=== PATIENT | female | born 1965 | race Caucasian/White ===

== ENCOUNTER 2021-07-19 07:54 | Outpatient (CLI) | payer MEDICARE, MEDICAID, SELFPAY ==
--- NOTE | ~2021-07-19 | MR_ITS ---
EXAMINATION: MR lumbar spine wo/w con DATE: 07/19/2021 10:44 INDICATION: Radiculopathy and lumbago. TECHNIQUE: Magnetic resonance imaging (MRI) of the lumbar spine was performed without and with 15 mL Multihance intravenous contrast. Sequences included sagittal T2-weighted FSE, sagittal T2-weighted FS FSE, and sagittal and axial T1-weighted FSE. Postcontrast sequences included axial T2-weighted FSE, sagittal T1-weighted FSE, and axial and sagittal T1-weighted FS FSE. COMPARISON: None FINDINGS: L3 laminectomy and partial L2 laminectomies. Combined anterior and posterior spinal fusion at L2-L3 w ith magnetic field artifact associated with an interbody fusion device at the right anterior side of the disc space and with bilateral vertical becky and pedicle screw fixation posteriorly. Alignment is n ormal. Small Schmorl's node along the superior endplate of L2. Vertebral body heights are otherwise n ormal. Normal marrow signal. Moderate disc height loss at L3-L4 and mild disc height loss with disc desiccation at L4-L5. The conus medullaris terminates at L1. There is normal signal in the caudal spi nal cord. Paravertebral soft tissues are unremarkable. No abnormally enhancing lesions identified. Th e following disc levels are specifically discussed: T12-L1: The disc does not extend beyond the endplate margin. There is no facet joint osteoarthritis. There is no neural foraminal stenosis. There is no central canal stenosis. L1-L2: Disc is minimally bulging. There is mild bilateral facet joint osteoarthritis. There is no hao ral foraminal stenosis. There is no central canal stenosis. L2-L3: Disc space is fused with prominent posterior bridging osteophyte. Posterior decompression with partial L2 laminectomy and L3 laminectomy. Posterior spinal fusion. There is no neural foraminal freddy nosis. There is no central canal stenosis. L3-L4: Disc is bulging. There is hypertrophy of the ligamentum flavum. There is moderate to severe bi lateral facet joint osteoarthritis. There is mild right and moderate left neural foraminal stenosis. There is mild central canal stenosis along with mild narrowing of the left and right lateral recesses . L4-L5: Disc is mildly bulging. There is moderate left and mild to moderate right facet joint osteoart hritis. There is moderate bilateral neural foraminal stenosis. There is mild central canal stenosis. L5-S1: The disc does not extend beyond the endplate margin. There is moderate bilateral facet joint o steoarthritis. There is no neural foraminal stenosis. There is no central canal stenosis. IMPRESSION: 1. Moderate lumbar spondylosis with L3 laminectomy, partial L2 laminectomy and combined instrumented anterior and posterior spinal fusion at L2-L3. Reviewed, dictated and finalized at location B. COLLECTION SYSTEM OPERATOR
== END 2021-07-19 07:55 | disposition home or self-care (01) ==
LOC: CHSIMG 07:56
PROVIDERS: PCP Family Medicine; Visit Provider Nurse Practitioner Family
DX: M54.50 Low back pain, unspecified (principal); M54.10 Radiculopathy, site unspecified
CPT/HCPCS: 72158; A9577

== ENCOUNTER 2021-12-09 11:05 | Outpatient (CLI) | payer MEDICARE, MEDICAID, SELFPAY ==
--- NOTE | ~2021-12-09 | XR_ITS ---
EXAMINATION: XR chest 2V DATE: 12/09/2021 11:31 INDICATION: Diastolic heart failure. Dyspnea. TECHNIQUE: Frontal and lateral views of the chest were obtained. COMPARISON: None. FINDINGS: The chest demonstrates clear lungs without pneumonia, pleural effusion, or pneumothorax. Th e heart size is normal. IMPRESSION: 1. No acute cardiopulmonary disease. Reviewed, dictated and finalized at location A.
--- NOTE | 2021-12-09 11:27 | ECG_ITS ---
Measurements Intervals [place] Rate: 63 P: 25 DE: 164 QRS: 70 QRSD: 116 T: 52 QT: 419 QTc: 431 Interpretive Statements SINUS RHYTHM INCOMPLETE RIGHT BUNDLE BRANCH BLOCK BASELINE WANDER- AVR, AVL, AVF, V1 BORDERLINE ECG Electronically Signed On 12-09-2021 17:20:43 CDT by Fei Brenner D.O.
--- NOTE | 2021-12-09 14:00 | ECHO_ITS ---
Patient Info Name: Jackelin Silveira Age: 56 years : 1965 Gender: Female Ht: 65 in Wt: 281 lbs BSA: 2.49 m2 HR: 59 bpm BP: 128 / 70 mmHg Technical Quality: Good Exam Date: 12/09/2021 12:36 PM Exam Location: [facility] Patient Status: Outpatient Admit Date: 12/09/2021 Staff Ordering Physician: AntonellaDanie MD Leasing Consultant: Francis Son, YOLANDA, RT Attending Provider: AntonellaDanie MD Exam Type: CA echo doppler color flow Study Info Indications R06.00 - Dyspnea, unspecified Complete two-dimensional, color flow and Doppler transthoracic echocardiogram is performed. Strain analysis performed. Summary 1. Complete two-dimensional, color flow and Doppler transthoracic echocardiogram is performed. 2. Left ventricular chamber dimension is normal. 3. Left ventricular systolic function is normal, estimated at 60-65%. 4. The left ventricular diastolic function is grade I diastolic dysfunction. 5. E/e' 7 is not elevated. 6. Global longitudinal strain is normal at -19.4%. 7. Left atrial chamber dimension is mildly enlarged. 8. Right atrial chamber dimension is mildly enlarged. 9. There is mild aortic valve regurgitation. 10. There is moderate tricuspid valve regurgitation. 11. No pulmonary hypertension, estimated pulmonary arterial systolic pressure is 32 mmHg. Left Ventricle E/e' 7 is not elevated. Global longitudinal strain is normal at -19.4%. Left ventricular chamber dimension is normal. Left ventricular systolic function is normal, estimated at 60-65%. The left ventricular diastolic function is grade I diastolic dysfunction. Right Ventricle Right ventricular systolic function is normal and with normal TAPSE 2.7 cm. Right ventricular chamber dimension is normal. Left Atria Left atrial chamber dimension is mildly enlarged. Right Atria Right atrial chamber dimension is mildly enlarged. Aortic Valve The aortic valve is trileaflet. There is no aortic valve stenosis. There is mild aortic valve regurgitation. Pulmonic Valve There is no pulmonic regurgitation. Mitral Valve There is no mitral valve stenosis. There is no mitral valve regurgitation. Tricuspid Valve There is moderate tricuspid valve regurgitation. No pulmonary hypertension, estimated pulmonary arterial systolic pressure is 32 mmHg. Pericardium/Pleural There is no pericardial effusion. Inferior Vena Cava Normal inferior vena cava with >50% collapse upon inspiration consistent with normal right atrial pressure, 5 mmHg. Aorta The aortic root size at the sinus of Valsalva is normal. Left Ventricular Outflow Tract Name Value Normal LVOT 2D LVOT Diameter 2.0 cm LVOT Doppler LVOT Peak Velocity 115 cm/s LVOT Peak Gradient 5 mmHg LVOT Mean Gradient 2 mmHg LVOT VTI 27 cm LVOT VTI/AV VTI Ratio 1.0 LVOT Stroke Volume 81 ml Mitral Valve Name Va
== END 2021-12-09 11:06 | disposition home or self-care (01) ==
LOC: CHSIMG 11:10
PROVIDERS: PCP Family Medicine; Visit Provider Family Medicine
DX: I50.30 Unspecified diastolic (congestive) heart failure (principal)
CPT/HCPCS: 71046; 93005; 93306